=== PATIENT | male | born 1960 | race Caucasian/White ===

== ENCOUNTER 2024-10-31 06:00 | Inpatient (IN) ==
--- NOTE | 2024-10-27 09:57 | Anesthesiology Consultation ---
Date of Service October 27, 2024 Assessment & Plan (1) Encounter for pre-operative examination: - 09/06 labs scanned to chart, was advised that [facility] is also faxing labs. - "5 cm AAA" noted on [facility] general surgery 06/2023 visit. No additional information available, cleared for 04/2024 cystoscopy ureteronephroscopy, right retrograde pyelogram with radiographic interpretation, insertion of right stent catheter. Case discussed in detail with Dr. Murry who advised patient is acce ptable to proceed given indication for procedure. - Per dot compliance coordinator on 10/19/24: No known infectious disease contacts, current infectious disease symptoms in past 10 days or COVID positive test result in the past 30 days. Chart Review Chart Review: Pending: Refer to Additional Notes / Consult section and Patient NOT seen in Pre Admission Testing History Surgery Operation Date: 10/31/24 07:30 Proposed Procedures p Robotic assisted Laparoscopic Partial Nephrectomy - Left - Billy Beach MD Height/Weight Height: 6 ft 1 in Weight: 137.438 kg Allergies Allergy/AdvReac Type Severity Reaction Status Date / Time No Known Drug Allergies Allergy Verified 10/19/24 11:44 Medications Home Medications Medication Instructions Recorded Confirmed Last Taken aspirin 81 mg tablet,delayed 81 mg PO DAILY 01/07/23 10/19/24 04/23/24 07:00 release (Adult Aspirin Regimen) atorvastatin 10 mg tablet 10 mg PO DAILY 01/07/23 10/19/24 04/23/24 07:00 metoprolol tartrate 25 mg tablet 12.5 mg PO BID 01/07/23 10/19/24 04/23/24 07:00 albuterol sulfate 90 mcg/actuation 2 inh inhalation Q6H PRN Shortness 04/07/23 10/19/24 04/23/24 07:00 breath activated powder inhaler Of Breath ciclesonide 80 mcg/actuation 1 puff inhalation DAILY 04/07/23 10/19/24 04/23/24 07:00 aerosol inhaler (Alvesco) hydrochlorothiazide 25 mg tablet 25 mg PO DAILY 04/07/23 10/19/24 04/21/24 cholecalciferol (vitamin D3) 25 50 mcg PO BID 03/14/24 10/19/24 04/19/24 mcg (1,000 unit) capsule (Vitamin D3) doxepin 150 mg capsule 150 mg PO HS 10/19/24 10/19/24 Unknown Past Medical History Medical History Adjustment disorder with anxiety Allergic rhinitis Aortic aneurysm 'aortic aneurysm, unspecified' [facility], '5cm AAA' per [facility] General Surgery note Benign hypertension Dental caries Generalized anxiety disorder GERD (gastroesophageal reflux disease) without esophagitis HCV (hepatitis C virus) Hematuria Hydronephrosis with renal and ureteral calculous obstruction Hypertension Inmate in correctional facility Localized superficial swelling, mass, or lump Mild intermittent asthma Other specified conditions influencing health status this is listed dx on [employer] [employer] paperwork Primary hyperparathyroidism pt had parathyroidectomy 08/04/23 Renal mass Left; urology monitoring Xerostomia Past Family History Family History Other Family history unknown Past Surgical History Surgical History History of parathyroidectomy 08/04/23 History of tonsillectomy S/P cystoscopy with ureteral stent placement 04/04/24, right stent, w/RP and ureteronephroscopy: GA: LMA#5 iGel without issue Social History Smoking Status: Unknown if ever smoked Testing Electrocardiogram Date: 03/10/24 NSR, rate 60 bpm Chest X-Ray Date: 03/09/24 No radiographic evidence of active tuberculosis No radiographic evidence of acute cardiopulmonary disease Other Testing Abdomen MRI 07/06/24 1. 5.4 x 4.2 cm heterogeneously enhancing left lower pole renal mass, similar to CT of January 14, 2024. Renal cell carcinoma is the diagnosis of exclusion. Although less likely, an angiomyolipoma is within the differential given equivocal small foci of fat. 2. No evidence for metastatic disease within the abdomen. 3. 9 mm T1 hyperintense left renal lesion which favors a proteinaceous cyst although characterization is difficult given small size. Chest CT 03/29/24 No acute findings. No suspicious pulmonary nodules or masses. Normal caliber of the thoracic aorta and central pulmonary arteries. Abdomen CT 01/14/24 1. Enhancing mass in the left kidney inferior pole concerning for renal cell carcinoma. 2. Right hydronephrosis. 3. Additional findings as above. Vessels: Atherosclerotic calcifications are seen
[2024-10-31] MEDS: LR 15ML/HR IV SCH (06:33)
[2024-10-31] MEDS: HEPARIN SOD 5,000 UNIT/0.5 ML VIAL SQ SCH (06:34)
[2024-10-31] MEDS ORDERED: DEXAMETHASONE SOD INJ 4 MG/ML VIAL ONE (06:41)
[2024-10-31] MEDS ORDERED: ONDANSETRON INJ 2 MG/ML 2 ML VIAL ONE (06:41)
[2024-10-31] MEDS ORDERED: ROCURONIUM BROMIDE 10 MG/ML 5 ML VIAL IV ONE ×2 (06:41→08:06)
[2024-10-31] MEDS ORDERED: PROPOFOL IV EMULSION 10 MG/ML 20 ML VIAL IV ONE (06:41)
[2024-10-31] MEDS ORDERED: LIDOCAINE 2% 2 ML VIAL/AMP(20MG/ML) INFIL ONE (06:41)
[2024-10-31] MEDS ORDERED: MIDAZOLAM HCL 1 MG/ML 2ML VIAL ONE (06:42)
[2024-10-31] MEDS ORDERED: ACETAMINOPHEN 1000 MG/100 ML IV IV ONE (06:44)
[2024-10-31] MEDS ORDERED: ONDANSETRON INJ 2 MG/ML 2 ML VIAL IV PRN (07:12)
[2024-10-31] MEDS ORDERED: HYDROmorphone INJ 2 MG/ML SYR/VIAL IV PRN (07:12)
[2024-10-31] MEDS ORDERED: PROMETHAZINE HCL 6.25 MG in SODIUM CHLORIDE 0.9% 50 ML IV PRN (07:12)
[2024-10-31] MEDS ORDERED: ATROPINE SULFATE 0.1 MG/ML 10ML SYR IV PRN (07:12)
--- NOTE | 2024-10-31 07:16 | History & Physical Report ---
Date of Service October 31, 2024 Assessment & Plan (1) Renal mass: Plan: right renal mass presenting for robotic partial nephrectomy risks, benefits, and expectations reviewed History of Present Illness Primary Care Provider: [facility] Leighton right renal mass presenting for definitive treatment via partial nephrectomy Allergies Allergy/AdvReac Type Severity Reaction Status Date / Time No Known Drug Allergies Allergy N/A Verified 10/31/24 06:20 Home Medications Medication Instructions Recorded Confirmed Type aspirin 81 mg tablet,delayed 81 mg PO DAILY 01/07/23 10/31/24 History release (Adult Aspirin Regimen) atorvastatin 10 mg tablet 10 mg PO DAILY 01/07/23 10/31/24 History metoprolol tartrate 25 mg tablet 12.5 mg PO BID 01/07/23 10/31/24 History albuterol sulfate 90 mcg/actuation 2 inh inhalation Q6H PRN Shortness 04/07/23 10/31/24 History breath activated powder inhaler Of Breath ciclesonide 80 mcg/actuation 1 puff inhalation DAILY 04/07/23 10/31/24 History aerosol inhaler (Alvesco) hydrochlorothiazide 25 mg tablet 25 mg PO DAILY 04/07/23 10/31/24 History cholecalciferol (vitamin D3) 25 50 mcg PO BID 03/14/24 10/31/24 History mcg (1,000 unit) capsule (Vitamin D3) doxepin 150 mg capsule 150 mg PO HS 10/19/24 10/31/24 History Past Med/Surg History Problem List Renal mass Nephrolithiasis Bilateral hydronephrosis Hematuria GERD (gastroesophageal reflux disease) Hypertension Generalized anxiety disorder Medical History Inmate in correctional facility Other specified conditions influencing health status this is listed dx on [facility] paperwork Hypertension Adjustment disorder with anxiety Renal mass Left; urology monitoring Hematuria Localized superficial swelling, mass, or lump Hydronephrosis with renal and ureteral calculous obstruction GERD (gastroesophageal reflux disease) without esophagitis Mild intermittent asthma Allergic rhinitis Aortic aneurysm 'aortic aneurysm, unspecified' per [facility] problem list, '5cm AAA' per [facility] General Surgery note Benign hypertension Generalized anxiety disorder Primary hyperparathyroidism pt had parathyroidectomy 08/04/23 Xerostomia Dental caries HCV (hepatitis C virus) Surgical History S/P cystoscopy with ureteral stent placement 04/04/24, right stent, w/RP and ureteronephroscopy: GA: LMA#5 iGel without issue History of parathyroidectomy 08/04/23 History of tonsillectomy Family History Other Family history unknown Social History Smoking Status: Unknown if ever smoked Preferred Language: Unknown Communication Ability: Unknown 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: No Beliefs That Will Affect Care: None Current Living Situation: Other Current Living Situation Comment: inmate Review of Systems no fever, no chills and no fatigue no worsening vision no facial pain and no pain with swallowing no cough and no dyspnea no chest pain and no palpitations no abdominal pain, no nausea and no vomiting no back pain no rash and no urticaria no gait abnormality and no unsteadiness no behavioral changes and no depression no fatigue Physical Exam Physical Exam: General: Alert and oriented, no acute distress HEENT: Normocephalic, mucous membranes moist Pulmonary: Nonlabored respirations Abdomen: Nondistended Extremities: Moves all 4 spontaneously Neuro: No gross deficits Skin: Warm, dry, no rashes noted Results & Data Vital Signs (Past 12 Hours) Vital Signs Temp Pulse Resp BP Pulse Ox O2 Del Method 10/31/24 06:15 36.7 C 88 20 119/95 93 Room Air
[2024-10-31] MEDS: ceFAZolin 3000MG 3,000 MG/72.5 ML BAG IV SCH (07:28)
[2024-10-31] MEDS ORDERED: VASOPRESSIN 20 UNIT/ML VIAL ONE (08:17)
[2024-10-31] MEDS ORDERED: PHENYLEPHRINE HCL 10 MG/ML VIAL ONE (08:47)
[2024-10-31] MEDS ORDERED: ALBUMIN HUMAN 5% 12.5 GM/250 ML VIAL IV ONE (08:48)
[2024-10-31] MEDS: BUPIVACAINE 0.5 % 5 MG/1 ML MPF 30ML VIAL ONE ×2 (09:25→11:20)
[2024-10-31] MEDS: SURGICEL ABSORB HEMOSTAT 2IN X 14IN TOP ONE (10:38)
[2024-10-31] MEDS: TISSEEL FIBRIN SEALANT 10ML TOP ONE (10:39)
[2024-10-31] MEDS ORDERED: SUGAMMADEX SODIUM 200 MG/2 ML VIAL IV ONE (10:47)
[2024-10-31] MEDS ORDERED: HYDROmorphone INJ 2 MG/ML SYR/VIAL ONE (11:10)
--- NOTE | 2024-10-31 11:32 | Operative Report ---
PG Post Operative Report Pre & Post Diagnosis Operation Date: 10/31/24 07:30 Pre-Op Diagnosis: Left Renal mass Post-Op Diagnosis: Left Renal mass I identified the patient and participated in the time-out.: Yes Procedure Operation Date: 10/31/24 07:30 Actual Procedures p Robotic Assisted Laparoscopic Partial Left Nephrectomy(Left) - Billy Beach MD Surgeon Billy Beach MD Head Of Design Eunice Robles Estimated Blood Loss 50 Findings Consistent with Post-Op Diagnosis Specimens Left renal mass Description of Procedure Patient was identified in the preoperative holding area appropriate form consents reviewed and completed he was transported the operating suite. Upon arrival received appropriate preoperative antibiotics and was placed in [id number] left side up lateral decubitus position with the bed flexed. He was sterilely prepped and draped in standard fashion before insufflation of the abdomen was conducted utilizing a Veress needle. I then marked for robotic port sites down to an area approximately 5 cm lateral to the border of the rectus. The first port was placed approximately 2 fingers below the costal margin and each port subsequently was placed 6 to 8 cm inferior to the port above it. My first entry was with the second port from the top and entry was conducted uti lizing a Visiport and a 5 mm lens. Inspection revealed no significant adhesions. The subsequent ports were placed without difficulty. I additionally placed a 5 mm behavioral health assistant port in the upper portion of the rectus muscle on the left and a 12 mm port in the midportion of the rectus approximately 5 cm above the umbilicus. He does have an umbilical hernia, however utilizing the umbilicus as a port was not physically possible given the size of his abdomen and the distance between the umbilicus and our target organ. We then docked the robot. I began by medializing the colon after incising the white line of Toldt. After exposing the anterior surface of the kidney I was able to dissect superior to the kidney leaving the spleen retracted naturally in a cephalad direction from gravity. I then turned my attention to the lower pole of the kidney and I was able to identify the gonadal vein as well as the ureter. I created a plane between the 2 and 1 to the psoas muscle and then utilized the fourth arm of the robot to elevate the lower pole of the kidney. I traced the anterior surface the gonadal vein until we ran into the junction with the inferior aspect of the renal vein. Consistent with imaging seen preoperatively, his vein is branched and comes together over the aorta relatively close to the IVC. I was able to dissect both major branches circumferentially. There were several lumbar veins. The adrenal vein was identified as was the junction with the gonadal vein. The renal artery was identified. I initially dissected the lateral aspect of the aorta looking for the takeoff of the left renal artery, however it ultimately appeared that it was easier to find just inferior to the lower branch of the renal vein. This was a singular renal artery and was dissected circumferentially. At that time I turned my attention towards exposure of the kidney. I incised the Gerota's fascia in the midportion of the kidney and dissected from medial to lateral exposing normal renal parenchyma. There was a clear contour deformity consistent with a mass in the lower pole of the kidney. I carefully dissected between the ureter and the lower pole of the kidney with care to avoid injury to the ureter. I then continued to expose healthy renal parenchyma circumferentially around the mass. And began to dissect down towards the mass until I felt I was encroaching upon it and would ultimately be a safe plane for dissection. I confirmed this with an intraoperative laparoscopic ultrasound. I marked my location of incision and preplaced 2 V-Loc renorrhaphy stitches and one 2-0 Vicryl stitch for deep closure. These were attached to the abdominal wall and left out of my immediate [id number] for easy access when renorrhaphy was prepared. We then brought in 3 robotic clamps. We had a short curved, short straight, and long straight clamp which were all placed on Gerota's fat. We marked the time and began our warm ischemia by placing a short curved clamp across the artery followed by the short straight clamp across the inferior branch of the renal vein and the long straight across the superior branch. I began to incise the kidney and the location noted previously been marked. We are able to visualize collecting system as well as some sinus fat. Several vessels were encountered, however hemostasis remained excellent throughout. The mass was excised entirely and pushed out of our immediate field of dissection in view. I then switched to needle shuttle van driver instruments and begin renorrhaphy. I first utilized a 2-0 Vicryl suture to close the deep layer with care to avoid point closure of the collecting system. This additionally closed the vascular elements of the defect. A clip was placed after passing this needle through the renal parenchyma and out through the capsule away from the defect itself. I then began to utilize the V-Loc sutures to perform a true renorrhaphy with sliding clip technique. Approximately 6 passes were conducted between 2 d ifferent sutures. At that time we removed the long straight venous clamp. Followed by the short straight venous clamp, followed by the arterial clamp. Time was marked. Warm ischemia time was 16 minutes. Hemostasis was excellent. There was 1 small ooze from the capsular area and I used 1 additional stitch through this area which controlled this very well. At that time I placed a sheet of Surgicel across the defect and dripped a small amount of Tisseel over it to recapitalize the defect. I utilized a 2 oh V-Loc suture to reapproximate Gerota's fascia. The specimen was collected in an Endo Catch bag., After considering different options I elected to make a separate incision in the infraumbilical area to repair his umbilical hernia and extracted through an infraumbilical incision. B efore proceeding with this portion, I did close the 12 mm behavioral health assistant port utilizing a Carlo-Kym device and a 0 Vicryl. I incised through the umbilical hernia and reduced it. I then extracted the specimen before reapproximating fascia and closing the hernia utilizing a 0 PDS stitch in [id number] fashion with 4 separate sutures utilized. All other incisions were undertreated with half percent Marcaine and closed with 4-0 Monocryl. Subcutaneous fat was reapproximated and then from the local incision utilizing a 2-0 Vicryl. Skin was then closed with 4-0 Monocryl. Dermabond was placed across all incisions and he was reversed of anesthesia and taken to the recovery room in stable condition. There were no complications. Eunice Fields and Carl Robles were scrubbed and present throughout the entire case from incision to closure. Dr. Clinton Hurley assisted through the pantoja portion of the case when we were in warm ischemia and reconstructing the kidney. I attest to the content of the Intraoperative Record and any orders documented therein. Any exceptions are noted below.
--- NOTE | 2024-10-31 12:15 | Anesthesiology Progress Note ---
Date of Service October 31, 2024 Anesthesia Post Procedure Vital Signs Vital Signs: Temp Pulse Pulse Resp BP Pulse Ox O2 Del Method 10/31/24 12:00 36.4 C L 83 14 104/70 92 Nasal Cannula 10/31/24 11:55 87 16 113/75 92 Oxymask 10/31/24 11:45 84 14 116/71 95 Oxymask 10/31/24 11:35 36 C L 81 12 118/80 95 Oxymask 10/31/24 06:15 36.7 C 88 20 119/95 93 Room Air O2 Flow Rate 10/31/24 12:00 3 10/31/24 11:55 4 10/31/24 11:45 6 10/31/24 11:35 8 10/31/24 06:15 Pain Intensity Abdomen: Pain Intensity: 7 Transfer of Care Handoff Completed per policy Notes Mental Status: alert / awake / arousable and participated in evaluation Patient Amnestic to Procedure: Yes Nausea / Vomiting: adequately controlled Pain: adequately controlled Airway Patency, RR, SpO2: stable & adequate BP & HR: stable & adequate Hydration State: stable & adequate Anesthetic Complications: no major complications apparent and Pt Satisfied with anesthetic care
[2024-10-31 12:25] LABS: Hematocrit (blood only) 42.0 % (42.0-52.0); Hemoglobin 13.6 g/dl (14.0-18.0); Mean Corpuscular Hemoglobin 27.4 pg (25.0-34.0); Mean Corpuscular Volume 84.5 fL (80.0-100.0); Platelet Count 170 K/uL (130-400); RDW Standard Deviation 40.8 fL (36.4-46.3); Red Blood Count 4.97 M/uL (4.70-6.10); White Blood Count 8.86 K/ul (4.8-10.8)
[2024-10-31] MEDS ORDERED: HYDROmorphone INJ 0.5 MG/0.5 ML SYR IV PRN ×2 (12:28)
[2024-10-31 12:40] LABS: Anion Gap 7.0 (3-11); Blood Urea Nitrogen 14.0 mg/dl (6-23); Calcium 8.4 mg/dl (8.6-10.3); Carbon Dioxide 27.0 mmol/L (21-32); Chloride 105.0 mmol/L (98-107); Creatinine Clr Calc Pharmacy 75.7 ml/min; Glucose 177.0 mg/dl (70-99(Fasting)); Potassium 3.4 mmol/L (3.5-5.1); Sodium 139.0 mmol/L (136-145)
[2024-10-31 12:45] LABS: Immature Granulocytes # (auto) 0.05 K/uL (0.01-0.20); Immature Granulocytes % (auto) 0.6 %
[2024-10-31] MEDS: ACETAMINOPHEN 500 MG TAB PO SCH (13:30)
[2024-10-31] MEDS: SODIUM CHLORIDE 0.9% 1,000 ML IV SCH (13:31)
[2024-10-31] MEDS: ONDANSETRON INJ 2 MG/ML 2 ML VIAL IV PRN (13:44)
[2024-10-31] MEDS: DOCUSATE SODIUM 100 MG CAP PO SCH (20:35)
[2024-10-31] MEDS: DOXEPIN HCL 75 MG CAPSULE PO SCH (20:35)
[2024-10-31] MEDS: METOPROLOL TARTRATE 25 MG TAB PO SCH (20:36)
[2024-11-01 06:04] LABS: Hematocrit (blood only) 39.5 % (42.0-52.0); Hemoglobin 13.0 g/dl (14.0-18.0); Immature Granulocytes # (auto) 0.04 K/uL (0.01-0.20); Immature Granulocytes % (auto) 0.4 %; Mean Corpuscular Hemoglobin 27.8 pg (25.0-34.0); Mean Corpuscular Volume 84.4 fL (80.0-100.0); Platelet Count 195 K/uL (130-400); RDW Standard Deviation 41.1 fL (36.4-46.3); Red Blood Count 4.68 M/uL (4.70-6.10); White Blood Count 10.35 K/ul (4.8-10.8)
[2024-11-01 06:24] LABS: Anion Gap 4.0 (3-11); Blood Urea Nitrogen 17.0 mg/dl (6-23); Calcium 8.3 mg/dl (8.6-10.3); Carbon Dioxide 26.0 mmol/L (21-32); Chloride 108.0 mmol/L (98-107); Creatinine Clr Calc Pharmacy 73.7 ml/min; Glucose 117.0 mg/dl (70-99(Fasting)); Potassium 4.5 mmol/L (3.5-5.1); Sodium 138.0 mmol/L (136-145)
[2024-11-01] MEDS: hydroCHLOROthiazide 25 MG TAB PO SCH (07:59)
[2024-11-01] MEDS: ATORVASTATIN 10 MG TAB PO SCH (07:59)
[2024-11-01] MEDS: FLUTICASONE FUROATE 100MCG 14 PUFFS/INHALER INH SCH (08:00)
--- NOTE | 2024-11-01 08:08 | Urology Progress Note ---
Date of Service November 01, 2024 Assessment & Plan (1) Renal mass: Plan Postop day #1 status post left robotic partial nephrectomy/heminephrectomy Doing very well Reynolds out now Ambulate Continue hospitalization for at least 24 more hours Admission and Anticipated Discharge Date Admission Date: October 31, 2024 Subjective Doing very well Pain is well-controlled Urine is clear No major concerns Tolerating a diet No flatus yet Physical Exam Physical Exam: Incisions all appropriate Results & Data Vital Signs (Past 12 Hours) Vital Signs Temp Pulse Resp BP Pulse Ox O2 Del Method O2 Flow Rate 11/01/24 07:56 36.9 C 65 16 118/72 96 Room Air 11/01/24 03:00 36.7 C 72 18 111/74 95 Nasal Cannula 2 10/31/24 23:00 37.0 C 83 18 117/76 95 Nasal Cannula 2 PG Care Time/CCT Total # of Minutes Spent Total Time Spent with Patient: Total time spent is greater than 50% in coordination of care (as documented) at patient's floor/unit and/or counseling patient: Coding Level of Care Code None Diagnoses Renal mass N28.89
[2024-11-02 05:56] LABS: Hematocrit (blood only) 40.2 % (42.0-52.0); Hemoglobin 13.0 g/dl (14.0-18.0); Immature Granulocytes # (auto) 0.03 K/uL (0.01-0.20); Immature Granulocytes % (auto) 0.4 %; Mean Corpuscular Hemoglobin 27.4 pg (25.0-34.0); Mean Corpuscular Volume 84.6 fL (80.0-100.0); Platelet Count 182 K/uL (130-400); RDW Standard Deviation 41.9 fL (36.4-46.3); Red Blood Count 4.75 M/uL (4.70-6.10); White Blood Count 7.75 K/ul (4.8-10.8)
[2024-11-02 06:11] LABS: Anion Gap 6.0 (3-11); Blood Urea Nitrogen 21.0 mg/dl (6-23); Calcium 8.5 mg/dl (8.6-10.3); Carbon Dioxide 25.0 mmol/L (21-32); Chloride 107.0 mmol/L (98-107); Creatinine Clr Calc Pharmacy 80.0 ml/min; Glucose 94.0 mg/dl (70-99(Fasting)); Potassium 4.0 mmol/L (3.5-5.1); Sodium 138.0 mmol/L (136-145)
--- NOTE | 2024-11-02 08:41 | Urology Progress Note ---
Date of Service November 02, 2024 Assessment & Plan Admission and Anticipated Discharge Date Admission Date: October 31, 2024 Subjective Patient seen and examined at bedside this morning No acute issues overnight Reports some discomfort near incisions, but did not want pain medication this morning Voiding spontaneously after catheter removal, denies hematuria Tolerating diet Passing flatus Denies nausea, vomiting, fever or chills Review of Systems Constitutional: as per Subjective / HPI Genitourinary: + as per Subjective / HPI Physical Exam Constitutional: no acute distress Respiratory: normal respiratory effort; no respiratory distress and no labored breathing Gastrointestinal (Abdomen): Percussion/Palpation: abdomen soft Musculoskeletal: Head/Neck/Chest: normocephalic Skin: Incisions appropriate Neurologic: moves all extremities and awake Psychiatric: Orientation: alert and oriented x 3 Results & Data Vital Signs (Past 12 Hours) Vital Signs Temp Pulse Resp BP Pulse Ox O2 Del Method 11/02/24 07:41 36.9 C 72 16 128/84 92 Room Air PG Care Time/CCT Total # of Minutes Spent Total Time Spent with Patient: Total time spent is greater than 50% in coordination of care (as documented) at patient's floor/unit and/or counseling patient: Coding
--- NOTE | 2024-11-02 08:42 | Urology Progress Note ---
Date of Service November 02, 2024 Assessment & Plan (1) Renal mass: Plan Postop day #2 Recovery so far seems to be very much on pace I would like to watch him overnight, assuming stability throughout the night, plan for discharge home tomorrow Admission and Anticipated Discharge Date Admission Date: October 31, 2024 Subjective Pain is relatively well-controlled Recovery very much on pace Has been ambulatory but only within the room Voiding adequately Passing some flatus Labs stable and appropriate Physical Exam Physical Exam: Incisions appropriate, minimal ecchymosis around his extraction site at the umbilicus, no signs of infection Results & Data Vital Signs (Past 12 Hours) Vital Signs Temp Pulse Resp BP Pulse Ox O2 Del Method 11/02/24 07:41 36.9 C 72 16 128/84 92 Room Air PG Care Time/CCT Total # of Minutes Spent Total Time Spent with Patient: Total time spent is greater than 50% in coordination of care (as documented) at patient's floor/unit and/or counseling patient: Coding Level of Care Code None Diagnoses Renal mass N28.89
[2024-11-02 20:56] VITALS: O2SAT 92
[2024-11-03] MEDS: ALBUTEROL HFA 8 GM INHALER INH PRN (08:00)
--- NOTE | 2024-11-03 08:24 | Urology Progress Note ---
Date of Service November 03, 2024 Assessment & Plan (1) Renal mass: Plan 63-year-old male who is status post robotic left partial nephrectomy on 10/31/2024 Afebrile with stable vitals Pain well-controlled Patient has return of bowel function and is voiding spontaneously Stable for discharge home today [facility] Admission and Anticipated Discharge Date Admission Date: October 31, 2024 Subjective No acute events overnight. Afebrile with stable vitals. Reports being sore but pain otherwise well-controlled. Passing gas and had a bowel movement. Feels well enough to go home today. Physical Exam Physical Exam: General: Alert and oriented, no acute distress HEENT: Normocephalic, mucous membranes moist Pulmonary: Nonlabored respirations Abdomen: Nondistended, appropriately tender, soft, incisions clean dry and intact Extremities: Moves all 4 spontaneously Neuro: No gross deficits Skin: Warm, dry, no rashes noted Results & Data Vital Signs (Past 12 Hours) Vital Signs Temp Pulse Resp BP Pulse Ox O2 Del Method 11/03/24 08:02 124/83 11/02/24 20:55 37.3 C 87 18 131/83 92 Room Air PG Care Time/CCT Total # of Minutes Spent Total Time Spent with Patient: Total time spent is greater than 50% in coordination of care (as documented) at patient's floor/unit and/or counseling patient: Coding Level of Care Code 73383 SUB INP/OBS CARE 2/35MIN Diagnoses Renal mass N28.89
[2024-11-03 16:27] VITALS: BP 131/77; PULSE 65; RESP 16; TEMP 98.4
--- NOTE | 2024-11-07 04:45 | Coding Query ---
PATHOLOGY To promote full compliance with coding requirements relating to patient care, physician participation is requested in all cases of special projects manager uncertainty. Please assist us with the question(s) below: Please review the Pathology report and please document any relevant diagnosis(es) below: Diagnosis(es): Renal cell carcinoma Thank you LIONEL Alexander [facility]
== END 2024-11-03 19:15 | DRG 658 ==
LOC: ASU 06:00 → 3E 11:41